=== PATIENT | female | born 1980 | race Caucasian/White ===

== ENCOUNTER 2016-11-19 19:18 | Emergency (ER) | payer OTHER ==
--- NOTE | 2016-11-19 20:00 | ED Physician Documentation ---
Dyspnea - HISTORIAN Historian: patient, spouse - HPI Chief Complaint: Dyspnea Additional Information: inhalled muratiac acid that husb poured on truck [employer] for paint removal. temporary irritation and burning - improving now vs=good spo2 = rest vs = [id number] Onset: minutes Duration: continues in ED (lesser) Initiating Event: denies: upper respiratory illness Severity: moderate Associated Symptoms: none, anxiety Further Comments: yes (pt hesitates to talk but can) - ROS CONST: no problems EYES/ENT: none GI/: none NEURO/PSYCH: denies: headache MS/SKIN/LYMPH: none - PAST HX Lung Disease: none PE Risk Factors: none Surgeries/Procedures: other (btl c-sect) Other History: none Allergies/Adverse Reactions: Allergies Allergy/AdvReac Type Severity Reaction Status Date / Time Sulfa (Sulfonamide Allergy Severe Anaphylaxis Verified 11/19/16 19:33 Antibiotics) [Sulfa(Sulfonamide Antibiotics)] Home Medications: Ambulatory Orders Medication Instructions Recorded Citalopram Hydrobromide 20 mg PO D 05/04/16 [Citalopram HBr] LORazepam [Ativan] 1 mg PO DIRECTED 05/04/16 Phenobarbital [Phenobarbital] 200 mg PO DIRECTED 05/04/16 Spironolactone [Aldactone] 50 mg PO D 05/04/16 - SOCIAL HX Smoking History: less than 1 pack/day Alcohol Use: none Drug Use: none - FAMILY HX Family History: no significant history - VITAL SIGNS Vital Signs: Vital Signs Temp Pulse Resp BP Pulse Ox 137/87 05/04/16 22:42 - REVIEWED ASSESSMENTS Nursing Assessment Reviewed: Yes Vitals Reviewed: Yes Dyspnea Physical Exam - EXAM General Appearance: mild distress EENT: eye inspection normal Neck: nml inspection Respiratory: no resp. distress, breath sounds nml CVS: reg. rate & rhythm, pulses equal Abdomen: non-tender Skin: color nml, no rash. No: cyanosis, diaphoresis, pallor, ecchymosis, skin rash Extremities: non-tender, normal range of motion Neuro/Psych: oriented x3, motor nml, sensation nml Discharge Clincal Impression: respiratory irritation from inhalled mur, atic acid Referrals: Ben Orr [Primary Care Provider] - 2 Days Home Medications: Ambulatory Orders Citalopram Hydrobromide [Citalopram HBr] 20 mg PO D 05/04/16 LORazepam [Ativan] 1 mg PO DIRECTED 05/04/16 Phenobarbital [Phenobarbital] 200 mg PO DIRECTED 05/04/16 Spironolactone [Aldactone] 50 mg PO D 05/04/16 Comments: rt ed sy worsen. called poison control they verrified earlier symptoms if were to happen-such as sob wheezing lips throat swollen or irritated. pt to go home hold cigarettes breathe fresh air avoid furthur inhalled irritants Condition: Good Disposition: 01 HOME, SELF-CARE Decision to Admit: NO Decision Time: 19:59
[2016-11-19 20:09] VITALS: BP 132/74
== END 2016-11-19 20:08 | disposition home or self-care (01) ==
LOC: ED 19:18
DX: J40 Bronchitis, not specified as acute or chronic (principal)
CPT/HCPCS: 99283

== ENCOUNTER 2017-09-05 23:06 | Emergency (ER) | payer SELFPAY ==
--- NOTE | 2017-09-05 23:23 | ED Physician Documentation ---
Sore Throat/Dental Pain - HISTORIAN Historian: patient - HPI Stated Complaint: dental pain/ abscess Chief Complaint: Dental Pain Onset: other (months ) Context: Abscess, Dental Caries, Possible Infection Associated Symptoms: fever, moderate. denies: chills, sore throat, unable to swallow, cough, swollen glands Worsened By: heat, cold, other (eating ) Further Comments: yes (She states she has had dental issues for months. She states she is on a waiting list for free dental care. She has no insurance. she states she started to have drainge from the upper left back tooth and now today a fever) - ROS CONST: no problems CVS/RESP: denies: shortness of breath GI/: denies: nausea, vomiting MS/SKIN/LYMPH: denies: rash NEURO/PSYCH: denies: headache - PAST HX Past History: gum disease Other History: none Immunizations: UTD Allergies/Adverse Reactions: Allergies Allergy/AdvReac Type Severity Reaction Status Date / Time Sulfa (Sulfonamide Allergy Severe Anaphylaxis Verified 09/05/17 23:30 Antibiotics) [Sulfa(Sulfonamide Antibiotics)] - SOCIAL HX Smoking History: cigarettes Alcohol Use: none Drug Use: none - FAMILY HX Family History: No - VITAL SIGNS Vital Signs: Vital Signs Temp Pulse Resp BP Pulse Ox 98.7 F 93 H 16 128/88 99 09/05/17 23:14 09/05/17 23:14 09/05/17 23:14 09/05/17 23:14 09/05/17 23:14 - REVIEWED ASSESSMENTS Nursing Assessment Reviewed: Yes Vitals Reviewed: Yes Dental Pain Physical Exam - EXAM General Appearance: no acute distress Head/Neck: head nml inspection, no lymphadenopathy Eyes: eyes nml inspection Mouth/Throat: lips nml, pharynx nml, widespread dental decay Respiratory: no resp. distress, breath sounds nml CVS: reg. rate & rhythm, heart sounds nml Abdomen: soft Extremities: non-tender, nml ROM Skin: warm/dry, normal color Neuro/Psych: No: weakness, numbness, anxiety Discharge Clincal Impression: Dental abscess Referrals: Ben Orr [Primary Care Provider] - 2 Days Comments: 1. Amoxicillin 500 mg TID x 10 days 2. See PCP and dental EDDIE 3. Tramodol 50 mg take 1 by mouth every 8 hours as needed for pain 4. warm salt water gargles 5. Return to ER for increasing pain or fever or other concerns Condition: Stable Disposition: 01 HOME, SELF-CARE Decision to Admit: NO Date of Decison to Admit: 09/05/17 Decision Time: 23:39
[2017-09-05] MEDS ORDERED: AMOXICILLIN 500 MG CAPSULE PO ONE (23:32)
[2017-09-05] MEDS ORDERED: KETOROLAC TROMETHAMINE 60 MG/2 ML VIAL IM ONE (23:33)
[2017-09-06 00:02] VITALS: BP 142/82
== END 2017-09-05 23:59 | disposition home or self-care (01) ==
LOC: ED 23:06
DX: K04.7 Periapical abscess without sinus (principal)
CPT/HCPCS: 96372; 99283; J1885